=== PATIENT | male | born 2000 | race Caucasian/White ===

== ENCOUNTER 2018-10-26 19:24 | Emergency (ER) | payer OTHER ==
[~2018-10-26] VITALS: Ht 170.2 cm; Wt 69.4 kg
[2018-10-26 19:27] VITALS: Ht 170.2 cm; Wt 69.4 kg
[2018-10-26 21:00] VITALS: BP 127/91
== END 2018-10-26 21:00 | disposition home or self-care (01) ==
LOC: ED 19:24
DX: S05.01XA Injury of conjunctiva and corneal abrasion without foreign body, right eye, initial encounter (principal); X58.XXXA Exposure to other specified factors, initial encounter; Y93.89 Activity, other specified; Y92.59 Other trade areas as the place of occurrence of the external cause; Y99.8 Other external cause status
CPT/HCPCS: J7030; V2632